=== PATIENT | male | born 1965 | race African-American/Black ===

== ENCOUNTER 2017-06-25 14:40 | Emergency (ER) | payer OTHER ==
[~2017-06-25] VITALS: Ht 175.3 cm; Wt 85.7 kg
--- NOTE | 2017-06-25 15:20 | Emergency Room Report ---
History of Present Illness General Chief Complaint: Animal Bite Source: Patient Present Illness HPI 52-year-old male presents to the emergency department complaining of 10 out of 10 in severity localized pain, swelling, erythema that has been progressive in the medial right, since one day. Patient states he believes he was bit by some type of insect as he has to specific lesions of the erythema has been spreading from. Patient denies fevers or chills. Denies red streaking skin. Patient states he is up-to-date with his tetanus vaccination. It is exacerbated upon touch or walking. Denies recent travel, immobilization or claudication. Denies CP, Palpitations, LOC, AMS, dizziness, Changes in Vision, Sensation, paresthesias, or a sudden severe headache. Allergies: Coded Allergies: PENICILLINS (Verified Allergy, Unknown, nausea, 06/25/17) nausea Patient History Past Medical History: see triage record Past Surgical History: none Pertinent Family History: none Immunizations: UTD Reviewed Nursing Documentation: PMH: Agreed, PSxH: Agreed Nursing Documentation-PMH Past Medical History: No Stated History Review of Systems All Other Systems: negative except mentioned in HPI Physical Exam Vital Signs Date Time Temp Pulse Resp B/P (MAP) Pulse Ox O2 Delivery O2 Flow Rate FiO2 06/25/17 14:44 98.0 92 18 118/77 96 Room Air 98.1 Sp02 EP Interpretation: reviewed, normal General Appearance: no apparent distress, alert, GCS 15, non-toxic Head: normocephalic, atraumatic ENT: hearing grossly normal, normal voice Neck: full range of motion Respiratory: chest non-tender, lungs clear, normal breath sounds, speaking full sentences Cardiovascular #1: regular rate, rhythm, no edema, normal capillary refill Musculoskeletal: back normal, normal range of motion, other - using pair of crutches, compensating on right leg. , tender - TTP to medial right calf about area of erythema. Neurologic: alert, oriented x3, responsive, motor strength/tone normal, sensory intact, speech normal, grossly normal Psychiatric: judgement/insight normal Skin: warm/dry, well hydrated, other - two lesions on the medial right calf with moderate surrounding erythema and increased temperature to palpation. superficial tenderness as well. no palpable fluctuance, swelling noted. Lymphatic: no adenopathy Medical Decision Making PA Attestation Dr. Mayo is my supervising Physician whom patient management has been discussed with. Diagnostic Impression: Primary Impression: Cellulitis Qualified Codes: L03.115 - Cellulitis of right lower limb ER Course 52-year-old male presents to the emergency department complaining of 10 out of 10 in severity localized pain, swelling, erythema that has been progressive in the medial right, since one day. Patient states he believes he was bit by some type of insect as he has to specific lesions of the erythema has been spreading from. Patient denies fevers or chills. Denies red streaking skin. Patient states he is up-to-date with his tetanus vaccination. It is exacerbated upon touch or walking. Denies recent travel, immobilization or claudication. Denies CP, Palpitations, LOC, AMS, dizziness, Changes in Vision, Sensation, paresthesias, or a sudden severe headache. Ddx considered but are not limited to cellulitis, Dog/Cat bite, Venous stasis, DVT, fracture, d/L, gout Vital signs: are WNL, pt. is afebrile H&PE are most consistent with Cellulitis of the right medial calf. ORDERS: none required at this time, the diagnosis is clinical ED INTERVENTIONS: -Oral Abx PO - Pain Control PO DISCHARGE: At this time pt. is stable for d/c to home. Will provide printed patient care instructions, and any necessary prescriptions. Care plan and follow up instructions have been discussed with the patient prior to discharge. Last Vital Signs Date Time Temp Pulse Resp B/P (MAP) Pulse Ox O2 Delivery O2 Flow Rate FiO2 06/25/17 14:44 98.0 92 18 118/77 96 Room Air 98.1 Disposition: HOME, SELF-CARE Condition: Stable Scripts Ibuprofen* (MOTRIN*) 600 Mg Tablet 600 MG ORAL THREE TIMES A DAY, #20 TAB 0 Refills Prov: Junie Shelley P.A. 06/25/17 Hydrocodone Bit/Acetaminophen 5-325* (NORCO 5-325*) 1 Each Tablet 1 TAB ORAL Q6H Y for For Pain, #6 TAB 0 Refills Prov: Junie Shelley P.A. 06/25/17 Trimethoprim/Sulfamethoxazole 160/800* (BACTRIM DS TABLET*) 1 Each Tablet 1 TAB ORAL TWICE A DAY for 10 Days, #20 TAB Prov: Junie Shelley P.A. 06/25/17 Cephalexin* (KEFLEX*) 500 Mg Capsule 500 MG ORAL EVERY 12 HOURS for 10 Days, #20 CAP 0 Refills Prov: Junie Shelley 06/25/17 Departure Forms: Return to Work Return to Work Date: Jun 29, 2017 Return to Full Activity: Jun 29, 2017 Patient Instructions: Cellulitis Additional Instructions: Take medications as directed. Follow up with a Primary Care Provider in 3-5 days, even if your symptoms have resolved. --Please review list of primary care clinics, if you do not already have a primary care provider Return sooner to ED if new symptoms occur, or current symptoms become worse. Do not drink alcohol, drive, or operate heavy machinery while taking [place] as this may cause drowsiness. - Please note that this Emergency Department Report was dictated using [email or web address] technology software, occasionally this can lead to erroneous entry secondary to interpretation by the dictation equipment. Junie Shelley Jun 25, 2017 15:20
[2017-06-25] MEDS ORDERED: Clindamycin 150mg cap ORAL ONE (15:45)
[2017-06-25] MEDS ORDERED: oxyCODONE HCL/Acetaminophen 5/325mg ORAL ONE (15:45)
[2017-06-25] MEDS ORDERED: NORCO 5-325 TA1 EACH ORAL (15:59)
[2017-06-25] MEDS ORDERED: IBUPROFEN600 MG ORAL (15:59)
[2017-06-25] MEDS ORDERED: BACTRIM DS TAB1 EAC1 ORAL (15:59)
[2017-06-25] MEDS ORDERED: CEPHALEXIN500 MG ORAL (15:59)
[2017-06-25] MEDS ORDERED: Cephalexin 500mg cap ORAL ONE (16:15)
[2017-06-25 17:11] VITALS: BP 115/75
[2017-06-25 17:14] VITALS: BP 115/75
== END 2017-06-25 17:18 | disposition home or self-care (01) ==
LOC: EMR 15:05
DX: L03.115 Cellulitis of right lower limb (principal); Z88.0 Allergy status to penicillin
CPT/HCPCS: 99284